=== PATIENT | female | born 1940 | race Caucasian/White ===

== ENCOUNTER 2022-03-11 16:18 | Inpatient (IN) ==
[2022-03-11] MEDS ORDERED: Ondansetron ODT 4 MG TAB.RAPDIS SL PRN (19:10)
[2022-03-11] MEDS ORDERED: Ergocalciferol (VIT D2) 50,000 UNIT (1.25MG) CAP PO SCH (22:00)
[2022-03-11] MEDS: Apixaban 5 MG TABLET PO SCH (23:10)
[2022-03-11] MEDS: *HR* OxyCODONE/APAP 5/325 TABLET PO PRN (23:10)
[2022-03-12] MEDS: Budesonide/Formoterol 160/4.5 1 PUFF INH IH SCH ×3 (00:22→21:17)
[2022-03-12 05:06] LABS: Basophils # 0.1 K/mcL (0.0-0.2); Eosinophils # 0.3 K/mcL (0.0-0.6); Eosinophils % 3.3 %; Hematocrit 32.5 % (35.3-44.9); Hemoglobin 10.2 g/dL (11.5-15.4); Immature Granulocytes % 6.8 % (0-4); Lymphocytes # 2.4 K/mcL (0.6-4.6); Lymphocytes % 23.8 %; Mean Corpuscular HGB Conc 31.4 g/dL (31.6-35.5); Mean Corpuscular Hemoglobin 27.6 pg (28.0-33.3); Mean Corpuscular Volume 87.8 fL (83.0-100.0); Mean Platelet Volume 11.4 fL (9.4-12.4); Monocytes # 0.9 K/mcL (0.0-1.3); Monocytes % 9.1 %; Neutrophils # 5.7 K/mcL (1.6-8.9); Platelet Count 150 K/mcL (140-400); Red Cell Distribution Width 17.3 % (11.5-14.5); White Blood Count 10.2 K/mcL (4.3-11.1)
[2022-03-12 05:31] LABS: Anisocytosis 1+ (Not Present); Platelet Estimate Normal (Normal); Poikilocytosis 1+ (Not Present)
[2022-03-12 05:34] LABS: Calcium 9.5 mg/dL (8.6-10.3); Potassium 4.3 mEq/L (3.5-5.1)
[2022-03-12] MEDS ORDERED: amLODIPine 5 MG TABLET PO SCH (09:00)
[2022-03-12] MEDS ORDERED: lisinopriL 20 MG TABLET PO SCH ×2 (09:00→09:06)
[2022-03-12] MEDS: Furosemide 40 MG TABLET PO SCH (09:08)
[2022-03-12] MEDS: *HR* Glimepiride 2 MG TABLET PO SCH ×2 (09:08→16:56)
[2022-03-12] MEDS: Nicotine 21 MG PATCH.TD24 TD SCH (09:08)
[2022-03-12] MEDS: Apixaban 5 MG TABLET PO SCH ×2 (09:08→21:40)
[2022-03-12] MEDS: paricalcitoL 1 MCG CAPSULE PO SCH (09:08)
[2022-03-12] MEDS ORDERED: 0.9 % Sodium Chloride 1,000 ML IVC SCH (14:45)
[2022-03-12] MEDS: *HR* OxyCODONE/APAP 5/325 TABLET PO PRN (21:40)
[2022-03-13 05:07] LABS: Hematocrit 35.2 % (35.3-44.9); Hemoglobin 10.9 g/dL (11.5-15.4); Mean Corpuscular Hemoglobin 27.7 pg (28.0-33.3); Mean Corpuscular Volume 89.3 fL (83.0-100.0); Platelet Count 155 K/mcL (140-400); Red Blood Count 3.94 M/mcL (3.82-4.97); Red Cell Distribution Width 17.6 % (11.5-14.5)
[2022-03-13 05:25] LABS: Albumin 3.9 g/dL (3.5-5.7); Albumin/Globulin Ratio 1.4 (1.1-2.2); Bilirubin,Total 0.7 mg/dL (0.3-1.0); Calcium 9.4 mg/dL (8.6-10.3); Globulin 2.7 g/dL (2.4-3.5); Magnesium 2.3 mg/dL (1.6-2.6); Total Protein 6.6 g/dL (6.4-8.9)
[2022-03-13] MEDS: amLODIPine 5 MG TABLET PO SCH (08:56)
[2022-03-13] MEDS: Nicotine 21 MG PATCH.TD24 TD SCH (08:56)
[2022-03-13] MEDS: levoFLOXacin 250 MG TABLET PO SCH (08:57)
[2022-03-13] MEDS: *HR* Glimepiride 2 MG TABLET PO SCH ×2 (08:57→16:53)
[2022-03-13] MEDS: paricalcitoL 1 MCG CAPSULE PO SCH (08:57)
[2022-03-13] MEDS: Apixaban 5 MG TABLET PO SCH ×2 (09:01→20:45)
[2022-03-13] MEDS: Budesonide/Formoterol 160/4.5 1 PUFF INH IH SCH ×2 (10:28→20:33)
[2022-03-13] MEDS: *HR* OxyCODONE/APAP 5/325 TABLET PO PRN (20:45)
[2022-03-14 05:10] LABS: Hematocrit 30.4 % (35.3-44.9); Hemoglobin 9.5 g/dL (11.5-15.4); Mean Corpuscular HGB Conc 31.3 g/dL (31.6-35.5); Mean Corpuscular Hemoglobin 27.7 pg (28.0-33.3); Mean Corpuscular Volume 88.6 fL (83.0-100.0); Mean Platelet Volume 10.4 fL (9.4-12.4); Platelet Count 129 K/mcL (140-400); Red Blood Count 3.43 M/mcL (3.82-4.97); Red Cell Distribution Width 17.4 % (11.5-14.5); White Blood Count 9.4 K/mcL (4.3-11.1)
[2022-03-14 05:30] LABS: Calcium 9.1 mg/dL (8.6-10.3); Magnesium 2.4 mg/dL (1.6-2.6); Potassium 4.6 mEq/L (3.5-5.1)
[2022-03-14] MEDS: Budesonide/Formoterol 160/4.5 1 PUFF INH IH SCH ×2 (07:48→19:55)
[2022-03-14] MEDS: *HR* Glimepiride 2 MG TABLET PO SCH ×2 (07:55→16:24)
[2022-03-14] MEDS: Apixaban 5 MG TABLET PO SCH ×2 (08:27→20:52)
[2022-03-14] MEDS: paricalcitoL 1 MCG CAPSULE PO SCH (08:27)
[2022-03-14] MEDS: Nicotine 21 MG PATCH.TD24 TD SCH (08:27)
[2022-03-14] MEDS: amLODIPine 5 MG TABLET PO SCH (08:27)
[2022-03-14] MEDS: *HR* OxyCODONE/APAP 5/325 TABLET PO PRN (08:52)
[2022-03-14] MEDS ORDERED: D5% in Water 1,000 ML IVC PRN (10:30)
[2022-03-14] MEDS ORDERED: Dextrose Gel 15 GM/37.5 ML TUBE PO PRN ×2 (10:30)
[2022-03-14] MEDS ORDERED: *HR* Dextrose 50 % in Water (Syg) 50 ML SYRINGE IVP PRN (10:30)
[2022-03-14] MEDS: Insulin LISPRO 300 UNITS/3 ML VIAL SUBQ SCH ×3 (12:27→20:42)
[2022-03-15] MEDS: *HR* OxyCODONE/APAP 5/325 TABLET PO PRN ×2 (06:48→20:20)
[2022-03-15] MEDS: Nicotine 21 MG PATCH.TD24 TD SCH (08:30)
[2022-03-15] MEDS: amLODIPine 5 MG TABLET PO SCH (08:54)
[2022-03-15] MEDS: Furosemide 40 MG TABLET PO SCH (08:54)
[2022-03-15] MEDS: Apixaban 5 MG TABLET PO SCH ×2 (08:54→20:19)
[2022-03-15] MEDS: paricalcitoL 1 MCG CAPSULE PO SCH (08:55)
[2022-03-15] MEDS: levoFLOXacin 250 MG TABLET PO SCH (08:55)
[2022-03-15] MEDS: *HR* Glimepiride 2 MG TABLET PO SCH ×2 (08:55→16:20)
[2022-03-15] MEDS: Insulin LISPRO 300 UNITS/3 ML VIAL SUBQ SCH ×3 (08:58→16:33)
[2022-03-15] MEDS: Budesonide/Formoterol 160/4.5 1 PUFF INH IH SCH ×2 (09:11→20:09)
[2022-03-15 21:33] VITALS: TEMP 98.4; O2SAT 98
[2022-03-16] MEDS: Insulin LISPRO 300 UNITS/3 ML VIAL SUBQ SCH ×3 (00:42→11:36)
[2022-03-16 04:46] LABS: Basophils # 0.1 K/mcL (0.0-0.2); Eosinophils # 0.3 K/mcL (0.0-0.6); Hemoglobin 9.4 g/dL (11.5-15.4); Immature Granulocytes % 3.1 % (0-4); Lymphocytes # 1.8 K/mcL (0.6-4.6); Lymphocytes % 19.8 %; Mean Corpuscular HGB Conc 31.3 g/dL (31.6-35.5); Mean Corpuscular Hemoglobin 27.6 pg (28.0-33.3); Mean Platelet Volume 10.3 fL (9.4-12.4); Monocytes # 0.9 K/mcL (0.0-1.3); Monocytes % 10.2 %; Neutrophils # 5.6 K/mcL (1.6-8.9); Platelet Count 124 K/mcL (140-400); Red Blood Count 3.41 M/mcL (3.82-4.97); Red Cell Distribution Width 17.2 % (11.5-14.5); Segmented Neutrophils % 62.9 %
[2022-03-16 05:00] LABS: Calcium 9.3 mg/dL (8.6-10.3); Potassium 4.8 mEq/L (3.5-5.1)
[2022-03-16] MEDS: *HR* OxyCODONE/APAP 5/325 TABLET PO PRN (06:43)
[2022-03-16 07:17] VITALS: BP 108/59; PULSE 69; RESP 16
[2022-03-16] MEDS: Budesonide/Formoterol 160/4.5 1 PUFF INH IH SCH (08:01)
[2022-03-16] MEDS: Apixaban 5 MG TABLET PO SCH (08:26)
[2022-03-16] MEDS: amLODIPine 5 MG TABLET PO SCH (08:26)
[2022-03-16] MEDS: Furosemide 40 MG TABLET PO SCH (08:26)
[2022-03-16] MEDS: Nicotine 21 MG PATCH.TD24 TD SCH (08:27)
[2022-03-16] MEDS: paricalcitoL 1 MCG CAPSULE PO SCH (08:27)
[2022-03-16] MEDS: *HR* Glimepiride 2 MG TABLET PO SCH (08:43)
== END 2022-03-16 12:45 | disposition home health service (06) | DRG 949 ==
LOC: INPGRE 21:28
PROVIDERS: ADMIT Family Medicine; ATTEND Family Medicine